=== PATIENT | male | born 1950 | race Caucasian/White ===

== ENCOUNTER → 2019-07-05 | Outpatient (CLI) | payer MEDICARE, OTHER ==
[2019-07-05 16:57] LABS: #Basophils 0.1 thou/uL (0.0-0.2); #Eosinphils 0.3 thou/uL (0.0-0.7); #Monocytes 0.7 thou/uL (0.11-0.59); #Neutrophils 4.3 thou/uL (1.40-6.50); %Basophils 1.1 % (0.0-1.0); %Eosinophils 3.1 % (0.0-10.0); %Monocytes 7.1 % (0.0-10.0); %Neutrophils 45.7 % (42.0-75.0); Hemoglobin 14.7 g/dL (14.0-18.0); Mean Corpuscular HGB CONC 32.5 g/dL (32.0-36.0); Mean Corpuscular Hemoglobin 32.3 pg (27.0-31.0); Mean Corpuscular Volume 99.4 fL (78.0-98.0); Platelet Count 220 thou/uL (130-400); RBC Distribution Width 11.7 % (11.5-14.5); Red Blood Cell (RBC) Count 4.54 mill/uL (4.70-6.10); White Blood Cell (WBC) Count 9.4 thou/uL (4.8-10.8)
[2019-07-05 17:14] LABS: Anion Gap 13 mmol/L (10-20); BUN (Urea Nitrogen) 19 mg/dL (8.4-25.7); Calc. Creatinine Clearance 0 mL/min (70-130); Calcium 9.2 mg/dL (7.8-10.44); Carbon Dioxide 28 mmol/L (23-31); Chloride 104 mmol/L (98-107); Estimated GFR-MDRD 57; Glucose 165 mg/dL (80-115); Potassium 3.5 mmol/L (3.5-5.1); Sodium 141 mmol/L (136-145)
[2019-07-07 17:13] LABS: SARS-CoV-2 MS2 Positive; SARS-CoV-2 N Gene Negative; SARS-CoV-2 S Gene Negative; SARS-CoV-2 orf1ab Negative
== END ==
LOC: LABBT 16:54
PROVIDERS: ATTEND Orthopaedic Surgery Hand Surgery
DX: Z01.818 Encounter for other preprocedural examination (principal); Z11.59 Encounter for screening for other viral diseases; D48.7 Neoplasm of uncertain behavior of other specified sites
CPT/HCPCS: 80048; 85025; 93005; U0003; 87635; 93010

== ENCOUNTER 2019-12-05 07:40 | Outpatient (CLI) | payer MEDICARE, OTHER ==
[2019-12-05 14:53] LABS: Hemoglobin 14.4 g/dL (14.0-18.0)
[2019-12-05 15:20] LABS: Anion Gap 21 mmol/L (10-20); BUN (Urea Nitrogen) 16 mg/dL (8.4-25.7); Calc. Creatinine Clearance 0 mL/min (70-130); Calcium 9.1 mg/dL (7.8-10.44); Carbon Dioxide 20 mmol/L (23-31); Chloride 105 mmol/L (98-107); Estimated GFR-MDRD 52; Glucose 154 mg/dL (80-115); Potassium 4.2 mmol/L (3.5-5.1); Sodium 142 mmol/L (136-145)
[2019-12-06 11:54] LABS: SARS-CoV-2 MS2 Positive; SARS-CoV-2 N Gene Negative; SARS-CoV-2 S Gene Negative; SARS-CoV-2 by NAA Not Detected (NotDetected); SARS-CoV-2 orf1ab Negative
== END 2019-12-05 07:41 | disposition home or self-care (01) ==
LOC: LABBT 07:40
PROVIDERS: ATTEND Student in an Organized Health Care Education/Training Program
DX: Z01.818 Encounter for other preprocedural examination (principal); R22.1 Localized swelling, mass and lump, neck; D16.9 Benign neoplasm of bone and articular cartilage, unspecified; Z20.828 Contact with and (suspected) exposure to other viral communicable diseases
CPT/HCPCS: 80048; 85014; 85018; 93005; U0003; 87635; 93010

== ENCOUNTER 2019-12-10 06:04 | Day surgery (SDC) | payer MEDICARE ==
[2019-12-09 14:22] VITALS: BMI 31.8
[2019-12-10] MEDS ORDERED: Fentanyl 100 MCG/2 ML VIAL ONE (06:26)
[2019-12-10] MEDS ORDERED: Lidocaine 2% Jelly 5 ML TUBE ONE (06:26)
[2019-12-10] MEDS ORDERED: Midazolam HCl 2 mg/2 ml Vial ONE (06:26)
[2019-12-10] MEDS ORDERED: Lidocaine 1% w/Epinephrine 1:100K 20 ML VIAL ONE (06:51)
[2019-12-10] MEDS ORDERED: Tobramycin/Dexamethasone Ophth Oint 3.5 GM TUBE ONE (06:51)
[2019-12-10] MEDS ORDERED: Bacitracin Zinc Ointment 30 gm TUBE ONE (06:51)
[2019-12-10] MEDS ORDERED: Ciprofloxacin 0.2% Otic (0.25ML CONTAINER) ONE ×2 (08:49→09:49)
[2019-12-10] MEDS ORDERED: Ondansetron PF 4 MG/2 ML Vial ONE (12:27)
[2019-12-10] MEDS ORDERED: PHENYLEPHRINE-NS 100 MCG/ML 10 ML SYRINGE ONE (12:27)
[2019-12-10] MEDS ORDERED: Lidocaine 1% PF 5 ML VIAL ONE (12:27)
[2019-12-10] MEDS ORDERED: Glycopyrrolate 0.2 MG/ML 5 ML SYRINGE ONE (12:27)
[2019-12-10] MEDS ORDERED: Rocuronium Bromide 10 MG/ML (10ML VIAL) ONE (12:27)
[2019-12-10] MEDS ORDERED: PROPOFOL 200 MG/20 ML VIAL ONE (12:27)
[2019-12-10] MEDS ORDERED: Dexamethasone 20 MG/5 ML VIAL ONE (12:27)
--- NOTE | 2019-12-11 14:11 | OP ---
DATE OF PROCEDURE: 12/10/2019 PREOPERATIVE DIAGNOSES: Right external auditory canal soft tissue mass obstructing the auditory canal, hearing loss. POSTOPERATIVE DIAGNOSES: Right external auditory canal soft tissue mass obstructing the auditory canal, hearing loss. PROCEDURES PERFORMED: Excision of external auditory canal mass on full- thickness skin graft. PERMIT: Procedures, benefits, risks including those of bleeding, infection, injury from anesthesia, allergic reaction, ear canal stenosis, hearing loss, necessitating revision and repair and alternatives were reviewed with the patient and family, who expressed understanding of the information. A consent form was signed and witnessed and a paper copy of the consent form is available for review in the paper chart. INDICATIONS FOR PROCEDURE: This is a 69-year-old male patient presenting to the clinic with inability to put in a hearing aid due to a soft tissue mass of the ear. The patient was then evaluated in clinic and brought to the operating room now for operative intervention. ASSISTANTS: None. FINDINGS: Right EAC soft tissue mass occluding the majority of the ear canal, approximately 1.5 cm in diameter. DESCRIPTION OF OPERATION: The patient was brought to the operating room table and laid supine on the operating room table. General endotracheal anesthesia was administered, and the patient was prepped and draped in a sterile fashion. The operative microscope was brought in place and 1% lidocaine with 1:100,000 epinephrine was injected around the soft tissue mass for hemostasis and for anesthesia. After this was performed with the use of an operative microscope and a speculum and Ragnell retractor in the external ear canal, the soft tissue mass was exposed and with the help of a needle-tip Bovie on cut setting, the mass was incised circumferentially, and both sharp dissection and Bovie electrocautery were used to dissect down to the cartilage and fibrofatty fat layer and removed the mass in its entirety, which was sent for pathologic evaluation, which was used to confirm that this was a benign tissue process. Afterwards, a roughly 2.5 x 2 cm defect of the EAC extending to the external ear was noted and the right neck which was prepped and draped in a sterile fashion was used as a donor site. A roughly 2.5 cm in length and 1.5 cm in width elliptical excision of soft tissue was made. A full- thickness skin graft was made in the natural skin crease using a 15 blade scalpel and elevating with an Adson-Brown in splitting the dermal layer in order to leave a thin, but complete full-thickness skin graft. Next, hemostasis was achieved with bipolar cautery and the wound was closed with deep 4-0 Vicryl sutures as well as a superficial running 4-0 Prolene stitch. Next, the skin graft was then thinned and then a small pie crusting incisions were made to relieve any possible bleeding or fluid collection which may develop, which was from its blood supply, and 5-0 fast-absorbing gut sutures were then used to used to tack the full-thickness skin graft down to the defect in a circumferential fashion. After this was performed, a bolster dressing was made using a Merocel. A cut portion of the Merocel wrapped in Xeroform with a stitch through the Xeroform and the Merocel to anchor and pack the ear canal and then pressed the full thickness skin graft down to the underlying tissues. After this was performed, the Merocel was then wetted with antibiotic ear drops in order to swell and put adequate pressure against the ear canal and help the full- thickness skin graft take. After this was completed, the patient tolerated the procedure well without complications and was turned over to Anesthesia for emergence. Job ID: [id number] [facility]
== END 2019-12-10 12:30 | disposition home or self-care (01) ==
LOC: SDC 06:04
PROVIDERS: ATTEND Student in an Organized Health Care Education/Training Program
PROC: 09B37ZZ Excision of Right External Auditory Canal, Via Natural or Artificial Opening (ICD-10-PCS; principal; 2019-12-10)
PROC: 0HR2X73 Replacement of Right Ear Skin with Autologous Tissue Substitute, Full Thickness, External Approach (ICD-10-PCS; 2019-12-10)
DX: D23.21 Other benign neoplasm of skin of right ear and external auricular canal (principal); R22.1 Localized swelling, mass and lump, neck; I10 Essential (primary) hypertension; Z79.899 Other long term (current) drug therapy; Z88.2 Allergy status to sulfonamides; Z88.5 Allergy status to narcotic agent
CPT/HCPCS: 88304; 88331; J1100; J2250; J2405; J2704; J3010

== ENCOUNTER 2021-10-29 19:30 | Outpatient (CLI) | payer MEDICARE | END 2021-10-29 19:31 | disposition home or self-care (01) | LOC: SLEEPLAB 19:30 | PROVIDERS: ATTEND Internal Medicine Critical Care Medicine | DX: G47.33 Obstructive sleep apnea (adult) (pediatric) (principal); E66.9 Obesity, unspecified; G47.10 Hypersomnia, unspecified; I10 Essential (primary) hypertension; R06.83 Snoring; G47.00 Insomnia, unspecified; G47.61 Periodic limb movement disorder; Z68.31 Body mass index [BMI] 31.0-31.9, adult | CPT/HCPCS: 95810 ==

== ENCOUNTER 2021-11-12 12:43 | Outpatient (CLI) | payer MEDICARE ==
[2021-11-12 13:56] LABS: Hemoglobin 14.5 g/dL (13.5-17.5)
[2021-11-12 14:24] LABS: Anion Gap 15 mmol/L (10-20); BUN (Urea Nitrogen) 15 mg/dL (8.4-25.7); Calc. Creatinine Clearance 0 mL/min (70-130); Calcium 9.5 mg/dL (7.8-10.44); Carbon Dioxide 25 mmol/L (23-31); Chloride 105 mmol/L (98-107); Estimated GFR 60; Glucose 129 mg/dL (80-115); Sodium 141 mmol/L (136-145)
== END 2021-11-12 12:44 | disposition home or self-care (01) ==
LOC: LABBT 12:43
PROVIDERS: ATTEND Student in an Organized Health Care Education/Training Program
DX: Z01.818 Encounter for other preprocedural examination (principal); C44.221 Squamous cell carcinoma of skin of unspecified ear and external auricular canal; H90.5 Unspecified sensorineural hearing loss; Z97.4 Presence of external hearing-aid; Z20.822 Contact with and (suspected) exposure to COVID-19
CPT/HCPCS: 80048; 85014; 85018; 87811; 93005; 93010

== ENCOUNTER 2021-11-16 11:14 | Day surgery (SDC) | payer MEDICARE ==
[2021-11-15 13:57] VITALS: BMI 32.5
== END 2021-11-16 12:36 | disposition home or self-care (01) ==
LOC: SDC 11:14
PROVIDERS: ATTEND Student in an Organized Health Care Education/Training Program
DX: C43.9 Malignant melanoma of skin, unspecified (principal); H90.5 Unspecified sensorineural hearing loss; Z53.9 Procedure and treatment not carried out, unspecified reason; Z79.899 Other long term (current) drug therapy; Z88.2 Allergy status to sulfonamides; Z88.5 Allergy status to narcotic agent; Z97.4 Presence of external hearing-aid

== ENCOUNTER 2021-11-23 07:14 | Day surgery (SDC) | payer MEDICARE ==
[2021-11-19 14:17] VITALS: BMI 32.5
[2021-11-23] MEDS ORDERED: Lidocaine 1% (PF) 30 ML VIAL ONE (09:20)
[2021-11-23] MEDS ORDERED: EPINEPHrine 1 MG/ML AMP ONE (09:20)
[2021-11-23] MEDS ORDERED: Famotidine/PF 20 mg/2ml Vial ONE (09:22)
[2021-11-23] MEDS ORDERED: SUGAMMADEX SODIUM 200 MG/2 ML VIAL ONE ×2 (09:22→10:03)
[2021-11-23] MEDS ORDERED: fentaNYL Citrate/PF 100 MCG/2 ML SYRINGE ONE ×2 (09:22→10:03)
[2021-11-23] MEDS ORDERED: Midazolam HCl 2 mg/2 ml Vial ONE (10:03)
[2021-11-23] MEDS ORDERED: Dexmedetomidine 200 MCG/2 ML VIAL ONE (10:03)
[2021-11-23] MEDS ORDERED: Phenylephrine 10 MG/ML VIAL ONE (11:07)
[2021-11-23] MEDS ORDERED: Succinylcholine 200 MG/10 ml SYRINGE FS ONE (13:28)
[2021-11-23] MEDS ORDERED: Ondansetron ORAL SOLN. 4 MG/5 ML UDCUP ONE (13:28)
[2021-11-23] MEDS ORDERED: Dexamethasone 20 MG/5 ML VIAL ONE (13:28)
[2021-11-23] MEDS ORDERED: PHENYLEPHRINE-NS 100 MCG/ML 10 ML SYRINGE ONE (13:28)
[2021-11-23] MEDS ORDERED: ePHEDrine 50 MG/ML VIAL ONE (13:28)
[2021-11-23] MEDS ORDERED: PROPOFOL 200 MG/20 ML VIAL ONE (13:28)
[2021-11-23] MEDS ORDERED: Rocuronium Bromide 10 MG/ML (10ML VIAL) ONE (13:28)
[2021-11-23] MEDS ORDERED: MINERAL OIL/WHITE PETROLATUM 3.5 GM TUBE ONE (13:42)
[2021-11-23] MEDS ORDERED: Isosulfan Blue 50 MG/5 ML VIAL ONE (14:15)
[2021-11-23] MEDS ORDERED: Bacitracin Zinc Ointment 30 gm TUBE ONE (16:06)
[2021-11-23] MEDS ORDERED: Fentanyl 100 MCG/2 ML VIAL ONE (17:05)
== END 2021-11-23 17:50 | disposition home or self-care (01) ==
LOC: NM 07:14
PROVIDERS: ATTEND Student in an Organized Health Care Education/Training Program
PROC: 0HB2XZZ Excision of Right Ear Skin, External Approach (ICD-10-PCS; principal; 2021-11-23)
PROC: 07B10ZX Excision of Right Neck Lymphatic, Open Approach, Diagnostic (ICD-10-PCS; 2021-11-23)
PROC: 0HR2X73 Replacement of Right Ear Skin with Autologous Tissue Substitute, Full Thickness, External Approach (ICD-10-PCS; 2021-11-23)
DX: C43.21 Malignant melanoma of right ear and external auricular canal (principal); H90.5 Unspecified sensorineural hearing loss; I10 Essential (primary) hypertension; Z79.899 Other long term (current) drug therapy; Z88.2 Allergy status to sulfonamides; Z88.5 Allergy status to narcotic agent; Z97.4 Presence of external hearing-aid
CPT/HCPCS: 11646; 15260; 38510; 78195; A9541; 88305; 88307; 88341; 88342; J0171; J1100; J2001; J2250; J2370; J2704; J3010; J3490; Q0162; Q9968; S0028